=== PATIENT | female | born 1945 | race Caucasian/White ===

== ENCOUNTER → 2017-06-03 | Outpatient (CLI) | payer MEDICARE ==
--- NOTE | 2017-06-04 11:49 | RSPPFT ---
DATE OF PROCEDURE: 06/03/17 COMMENTS: Spirometry with FVC of 2.1 predicted 2.7, FEV1 of 0 6 predicted 2.0, FEV1/FVC ratio 30% predicted 81%. Post-bronchodilator FVC increases to 3.0, FEV1 to 0.8. Severe air trapping is present with RV at 3.9 predicted 2.2. Airways resistance is severely increased at 3.2 predicted 1.3. DLCO is 43% of predicted. IMPRESSION: On the basis of the above, patient has a very severe obstructive lung defect with significant response to acutely inhaled bronchodilator.
== END ==
LOC: PHRSP 07:24
PROVIDERS: ATTEND Internal Medicine Pulmonary Disease
DX: J44.9 Chronic obstructive pulmonary disease, unspecified (principal)
CPT/HCPCS: 36600; 82805; 94060; 94618; 94726; 94729

== ENCOUNTER 2018-02-28 11:48 | Observation (INO) ==
[2018-02-28] MEDS ORDERED: MethylPREDNISolone Sod Succinate Inj 125 MG/2 ML Vial IV.PUSH ONE (13:13)
--- NOTE | 2018-02-28 13:22 | ED ---
HPI General Chief Complaint: Shortness of Breath/Dyspnea Stated Complaint: SOB/COPD x 1 week Time Seen by Provider: 02/28/18 12:53 Source: patient Mode of arrival: ambulatory Limitations: no limitations History of Present Illness Pleasant 72-year-old female with history of COPD. Recently on a 9-day cruise. Arrived home this morning and proceeded to the emergency room for evaluation of shortness of breath. 30 pack years of tobacco use. Quit approximately 20 years ago. Reports a wheeze. She does not use oxygen at home. She is followed by pulmonology. Complaint: Reports shortness of breath and cough Onset (ago): day(s) (-8) Context: Reports recent travel Severity: moderate Consistency/Duration: constant Relieving factors: nothing Exacerbating factors: lying flat and talking Known history of: Reports COPD Associated symptoms: Reports denies other symptoms Treatment prior to arrival: Reports none Related Data Home oxygen amount: none Home Medications Medication Instructions Recorded Confirmed albuterol sulfate [ProAir HFA] 1 puff INHALATION Q4-6H PRN 02/28/18 02/28/18 lisinopril mg PO DAILY 02/28/18 tiotropium bromide [Spiriva with 1 cap INHALATION DAILY 02/28/18 02/28/18 HandiHaler] Allergies Allergy/AdvReac Type Severity Reaction Status Date / Time No Known Allergies Allergy Verified 02/28/18 12:05 Review of Systems ROS: all other systems reviewed are negative [facility] Medical History Medical History Age related osteoporosis (Acute) COPD (chronic obstructive pulmonary disease) (Acute) Hypertension (Acute) Social History Social History Second Hand Smoke Exposure: No Smoking Status: Former smoker Tobacco Type: Cigarettes How Often Do You Have a Drink Containing Alcohol: Monthly or less Recent Travel in [facility] within the Last 8 Weeks: No Recent Out of Country Travel within the Last 8 Weeks: Yes Immunization History Tetanus Immunization: >5 Years Exam Narrative Exam Narrative: CARDIOVASCULAR: Regular rate and rhythm without murmurs, gallops , or rubs. RESPIRATORY: Breath sounds decreased left lower lobe with end expiratory wheeze. No accessory muscle use. GASTROINTESTINAL: Abdomen soft, normal bowel sounds, non-tender, nondistended. MUSCULOSKELETAL: No cyanosis, or edema. BACK: Nontender scoliosis noted. No CVA tenderness. Course Initial Documented Vital Signs Temperature 97.9 F 02/28/18 11:58 Pulse Rate 99 H 02/28/18 11:58 Respiratory Rate 18 02/28/18 11:58 Blood Pressure 179/88 H 02/28/18 11:58 Pulse Oximetry 93 L 02/28/18 11:58 Last Documented Vital Signs Temperature 97.9 F 02/28/18 11:58 Pulse Rate 98 H 02/28/18 14:05 Respiratory Rate 22 02/28/18 14:05 Blood Pressure 162/82 H 02/28/18 14:05 Pulse Oximetry 97 02/28/18 14:05 Medical Decision Making MDM Narrative Medical decision making narrative: Labs reviewed and discussed. O2 sat on room air evaluated and proximal 85%. Slightly tachycardic. I think patient would benefit from oxygen and observation. Spoke with Dr. Fam who is in agreement will admit. Medical Screen Exam Complete: Yes Emergency Medical Condition: Yes Differential Diagnosis Differential Diagnosis: COPD exacerbation, viral versus bacterial pneumonia, CHF Medical Records Medical records reviewed: Yes I reviewed the patient's medical records. Lab Data Lab results reviewed: Yes I reviewed the patient's lab results. Result diagrams: 02/28/18 13:25 02/28/18 13:25 Lab Results 02/28/18 02/28/18 02/28/18 Range/Units 13:25 13:25 13:25 CBC w Diff Auto diff final WBC 8.6 (4.0-11.0) th/mm3 RBC 3.93 L (4.00-5.30) mil/mm3 Hgb 13.2 (11.6-15.3) gm/dL Hct 39.3 (35.0-46.0) % MCV 100.0 (80.0-100.0) fL MCH 33.6 (27.0-34.0) pg MCHC 33.6 (32.0-36.0) % RDW 11.7 (11.6-17.2) % Plt Count 295 (150-450) th/mm3 MPV 7.7 (7.0-11.0) fL Neut % (Auto) 69.2 (16.0-70.0) % Lymph % (Auto) 14.0 (9.0-44.0) % [place] % (Auto) 9.4 H (0.0-8.0) % Eos % (Auto) 6.8 H (0.0-4.0) % Baso % (Auto) 0.6 (0.0-2.0) % Neut # (Auto) 5.9 (1.8-7.7) th/mm3 Lymph # (Auto) 1.2 (1.0-4.8) th/mm3 [place] # (Auto) 0.8 (0.0-0.9) th/mm3 Eos # (Auto) 0.6 H (0.0-0.4) th/mm3 Baso # (Auto) 0.1 (0.0-0.2) th/mm3 WBC Differential . Differential Comment . D-Dimer Quant (PE/DVT) Less than 0.19 (0.00-0.50) mg/L FEU Sodium 132 L (136-145) meq/L Potassium 4.2 (3.5-5.1) meq/L Chloride 95 L (98-107) meq/L Carbon Dioxide 28.5 (21.0-32.0) meq/L Anion Gap 9 (5-15) meq/L BUN 11 (7-18) mg/dL Creatinine 0.56 (0.50-1.00) mg/dL Estimated GFR Greater than 89 (>89) mL/min Random Glucose 93 (74-106) mg/dL Calcium 8.6 (8.5-10.1) mg/dL Total Bilirubin 0.5 (0.2-1.0) mg/dL AST 18 (15-37) U/L ALT 25 (10-53) U/L Alkaline Phosphatase 64 (45-117) U/L Total Creatine Kinase 66 (26-192) U/L Troponin I Less than 0.02 L (0.02-0.05) ng/mL Total Protein 7.3 (6.4-8.2) g/dL Albumin 3.9 (3.4-5.0) g/dL 02/28/18 Range/Units 13:25 CBC w Diff WBC (4.0-11.0) th/mm3 RBC (4.00-5.30) mil/mm3 Hgb (11.6-15.3) gm/dL Hct (35.0-46.0) % MCV (80.0-100.0) fL MCH (27.0-34.0) pg MCHC (32.0-36.0) % RDW (11.6-17.2) % Plt Count (150-450) th/mm3 MPV (7.0-11.0) fL Neut % (Auto) (16.0-70.0) % Lymph % (Auto) (9.0-44.0) % [place] % (Auto) (0.0-8.0) % Eos % (Auto) (0.0-4.0) % Baso % (Auto) (0.0-2.0) % Neut # (Auto) (1.8-7.7) th/mm3 Lymph # (Auto) (1.0-4.8) th/mm3 [place] # (Auto) (0.0-0.9) th/mm3 Eos # (Auto) (0.0-0.4) th/mm3 Baso # (Auto) (0.0-0.2) th/mm3 WBC Differential Differential Comment D-Dimer Quant (PE/DVT) (0.00-0.50) mg/L FEU Sodium (136-145) meq/L Potassium (3.5-5.1) meq/L Chloride (98-107) meq/L Carbon Dioxide (21.0-32.0) meq/L Anion Gap (5-15) meq/L BUN (7-18) mg/dL Creatinine (0.50-1.00) mg/dL Estimated GFR (>89) mL/min Random Glucose (74-106) mg/dL Calcium (8.5-10.1) mg/dL Total Bilirubin (0.2-1.0) mg/dL AST (15-37) U/L ALT (10-53) U/L Alkaline Phosphatase (45-117) U/L Total Creatine Kinase Cancelled (26-192) U/L Troponin I (0.02-0.05) ng/mL Total Protein (6.4-8.2) g/dL Albumin (3.4-5.0) g/dL Imaging Data Radiologist's impression: Chest X-Ray 02/28/18 13:13 CONCLUSION: 1. Hyperinflation of the lungs consistent with possible COPD. 2. Tiny granuloma within the right lung base. 3. Scoliosis of the thoracolumbar spine. Discharge Plan Discharge Disposition Patient Disposition: 30 Still Patient Discharge Condition Condition: Fair Discharge Details Diagnosis: Acute exacerbation of chronic obstructive airways disease Physicians Team ED Provider: Dom Wiggins Primary Care Provider: UNKNOWN, Rxs /Orders / Referrals /Forms Prescriptions: No Action albuterol sulfate [ProAir HFA] 90 mcg/actuation Hfa Aerosol Inhaler 1 puff INHALATION Q4-6H PRN (Reason: SHORT) RF: 0 lisinopril 2.5 mg Tablet PO DAILY RF: 0 tiotropium bromide [Spiriva with HandiHaler] 18 mcg Capsule, W/Inhalation Device 1 cap INHALATION DAILY RF: 0 Discharge Interventions Interventions: Vital Signs Last Done: 02/28/18 14:05 Status ED Status: With Doctor
--- NOTE | 2018-02-28 13:34 | XR ---
EXAM DATE: 02/28/2018 1:13 PM EDT AGE/SEX: 72 years / Female INDICATIONS: Short of breath. CLINICAL DATA: This is the patient's initial encounter. Patient reports that signs and symptoms have been present for 2 days and indicates a pain score of 2/10. MEDICAL/SURGICAL HISTORY: Chronic obstructive pulmonary disease. None. COMPARISON: . FINDINGS: Lungs are hyperinflated consistent with possible COPD. Tiny calcified granuloma is noted within the r ight lung base. There is no focal infiltrate or pulmonary vascular congestion. The heart is normal. S coliosis of the thoracolumbar spine is noted. CONCLUSION: 1. Hyperinflation of the lungs consistent with possible COPD. 2. Tiny granuloma within the right lung base. 3. Scoliosis of the thoracolumbar spine. Electronically signed by: Shin Santos MD 02/28/2018 1:33 PM EDT
[2018-02-28 13:38] LABS: Baso # (Auto) 0.1 th/mm3 (0.0-0.2); Baso % (Auto) 0.6 % (0.0-2.0); Eos # (Auto) 0.6 th/mm3 (0.0-0.4); Eos % (Auto) 6.8 % (0.0-4.0); Hematocrit 39.3 % (35.0-46.0); Hemoglobin 13.2 gm/dL (11.6-15.3); Lymph # (Auto) 1.2 th/mm3 (1.0-4.8); Mean Corpuscular HGB Conc 33.6 % (32.0-36.0); Mean Corpuscular Hemoglobin 33.6 pg (27.0-34.0); Mean Platelet Volume 7.7 fL (7.0-11.0); Mono # (Auto) 0.8 th/mm3 (0.0-0.9); Mono % (Auto) 9.4 % (0.0-8.0); Neut # (Auto) 5.9 th/mm3 (1.8-7.7); Neut % (Auto) 69.2 % (16.0-70.0); Platelet Count 295 th/mm3 (150-450); Red Blood Count 3.93 mil/mm3 (4.00-5.30); Red Cell Distribution Width 11.7 % (11.6-17.2); White Blood Count 8.6 th/mm3 (4.0-11.0)
[2018-02-28 13:40] LABS: Chloride 95 meq/L (98-107); Potassium 4.2 meq/L (3.5-5.1); Sodium 132 meq/L (136-145)
[2018-02-28 13:43] LABS: Albumin 3.9 g/dL (3.4-5.0); Anion Gap 9 meq/L (5-15); Blood Urea Nitrogen 11 mg/dL (7-18); Calcium 8.6 mg/dL (8.5-10.1); Carbon Dioxide 28.5 meq/L (21.0-32.0); Glucose,Random 93 mg/dL (74-106)
[2018-02-28 13:46] LABS: Alanine Aminotransferase 25 U/L (10-53); Aspartate Aminotransferase 18 U/L (15-37)
[2018-02-28 13:47] LABS: Glomerular Filtration Rate Greater Than 89 mL/min (>89)
[2018-02-28 13:48] LABS: Total Protein 7.3 g/dL (6.4-8.2)
[2018-02-28 13:49] LABS: Alkaline Phosphatase 64 U/L (45-117)
[2018-02-28 14:20] LABS: Creatine Kinase 66 U/L (26-192)
[2018-02-28] MEDS ORDERED: Azithromycin Inj 500 MG in Sodium Chlor 0.9% Inj 250 ML IV.SIG ONE (15:01)
[2018-02-28] MEDS ORDERED: Acetaminophen 325 MG Tablet PO PRN (15:15)
[2018-02-28] MEDS ORDERED: guaiFENesin/Codeine Syrup 200 MG/20 MG 10 ML UDC PO PRN (15:16)
--- NOTE | 2018-02-28 15:24 | P.HPIM ---
History of Present Illness Primary Care Physician: UNKNOWN Chief Complaint: shortness of breath History of Present Illness: patient is a 72 y/o female with history of COPD and hypertension who presented to ER with sob. she says that she started to have sob about a week ago but it gradually got worse that now she hardly can walk more then fifty feet without sob. she's complaining of productive cough of yellowish/greenish sputum but she denies any fever or chills. she says that she used her inhaler so many times without any significant improvement. she was noted to have a pulse-ox of 85% in ER when she was taken off the oxygen. at the time of my evaluation she reported some improvement.she denies any chest pain. Review of Systems All other systems reviewed negative except as stated in HPI [facility] - History History Provided By: Patient - Medical History Medical History: Medical History (Last Reviewed 02/28/18 @ 15:21 by Liborio Fam MD) Age related osteoporosis COPD (chronic obstructive pulmonary disease) Hypertension - Family History Family History: Family History (Last Updated 02/28/18 @ 15:21 by Liborio Fam MD) Other Family history of cancer - Tobacco History Second Hand Smoke Exposure: No Tobacco Use In Past 30 Days: No Smoking Status: Former smoker Tobacco Type: Cigarettes - Alcohol History How Often Do You Have a Drink Containing Alcohol: Monthly or less - Travel History Recent Travel in the [place] Within the Last 8 Weeks: No Recent Travel Out of the Country Within the Last 8 Weeks: Yes - Immunization History Tetanus Immunization: >5 Years Medications and Allergies Active Medications: Active Medications Azithromycin 500 mg/ Sodium (Chloride) 250 mls @ 250 mls/hr IV.SIG ONCE ONE Stop: 02/28/18 16:00 Allergies Allergy/AdvReac Type Severity Reaction Status Date / Time No Known Allergies Allergy Verified 02/28/18 12:05 Home Medications Medication Instructions Recorded Confirmed Type albuterol sulfate [ProAir HFA] 1 puff INHALATION Q4-6H PRN 02/28/18 02/28/18 History lisinopril mg PO DAILY 02/28/18 History tiotropium bromide [Spiriva with 1 cap INHALATION DAILY 02/28/18 02/28/18 History HandiHaler] Exam Vital signs: Vital Signs 02/28/18 11:58 02/28/18 12:11 02/28/18 13:13 Temperature 97.9 F Pulse Rate 99 H 88 97 H Respiratory Rate 18 18 Blood Pressure 179/88 H Pulse Oximetry 93 L 94 L 97 02/28/18 13:31 02/28/18 14:05 Temperature Pulse Rate 94 H 98 H Respiratory Rate 20 22 Blood Pressure 162/82 H Pulse Oximetry 97 Intake & Output 02/27/18 02/28/18 02/28/18 18:59 06:59 18:59 Weight 45 kg - Constitutional no acute distress - Routine HEENT Exam Eye: Present: PERRL - Routine Neck Exam Present: supple - Routine Respiratory Exam Present: CTA bilaterally, wheezes - Routine Cardiovascular Exam Present: RRR - Routine Abdominal Exam Present: soft - Routine Extremities Exam Comments: no pedal edema. - Routine Neurological Exam Present: alert, oriented X3 Results - Labs CBC & Chem 7: 02/28/18 13:25 02/28/18 13:25 Labs: Short CBC 02/28/18 Range/Units 13:25 WBC 8.6 (4.0-11.0) th/mm3 Hgb 13.2 (11.6-15.3) gm/dL Hct 39.3 (35.0-46.0) % Plt Count 295 (150-450) th/mm3 BMP 02/28/18 13:25 Sodium 132 L Potassium 4.2 Chloride 95 L Carbon Dioxide 28.5 BUN 11 Creatinine 0.56 Calcium 8.6 Cardiac Enzymes 02/28/18 02/28/18 Range/Units 13:25 13:25 Total Creatine Kinase 66 Cancelled (26-192) U/L Troponin I Less than 0.02 L (0.02-0.05) ng/mL Liver Function 02/28/18 Range/Units 13:25 Total Bilirubin 0.5 (0.2-1.0) mg/dL AST 18 (15-37) U/L ALT 25 (10-53) U/L Alkaline Phosphatase 64 (45-117) U/L Albumin 3.9 (3.4-5.0) g/dL - Imaging Impressions Chest X-Ray 02/28/18 13:13 CONCLUSION: 1. Hyperinflation of the lungs consistent with possible COPD. 2. Tiny granuloma within the right lung base. 3. Scoliosis of the thoracolumbar spine. Caprini VTE Risk Assessment Caprini VTE Risk Assessment: Moderate/High Risk (score >= 2) Caprini Risk Assessment Model: Point Value = 1 Point Value = 2 Point Value = 3 Point Value = 5 Age 41-60 Minor surgery BMI > 25 kg/m2 Swollen legs Varicose veins or History of unexplained or recurrent spontaneous Oral contraceptives or hormone replacement Sepsis (< 1 month) Serious lung disease, including pneumonia (< 1 month) Abnormal pulmonary function Acute myocardial infarction Congestive heart failure (< 1 month) History of inflammatory bowel disease Medical patient at bed rest Age 61-74 Arthroscopic surgery Major open surgery (> 45 min) Laparoscopic surgery (> 45 min) Malignancy Confined to bed (> 72 hours) Immobilizing plaster cast Central venous access Age >= 75 History of VTE Family history of VTE Factor V Leiden Prothrombin [id number] Lupus anticoagulant Anticardiolipin antibodies Elevated serum homocysteine Heparin-induced thrombocytopenia Other congenital or acquired thrombophilia Stroke (< 1 month) Elective arthroplasty Hip, pelvis, or leg fracture Acute spinal cord injury (< 1 month) Prophylaxis Regimen: Total Risk Factor Score Risk Level Prophylaxis Regimen 0-1 Low Early ambulation 2 Moderate Order ONE of the following: *Sequential Compression Device (SCD) *Heparin 5000 units SQ BID 3-4 Higher Order ONE of the following medications: *Heparin 5000 units SQ TID *Enoxaparin/Lovenox 40 mg SQ daily (WT < 150 kg, CrCl > 30 mL/min) *Enoxaparin/Lovenox 30 mg SQ daily (WT < 150 kg, CrCl > 10-29 mL/min) *Enoxaparin/Lovenox 30 mg SQ BID (WT < 150 kg, CrCl > 30 mL/min) AND/OR *Sequential Compression Device (SCD) 5 or more Highest Order ONE of the following medications: *Heparin 5000 units SQ TID (Preferred with Epidurals) *Enoxaparin/Lovenox 40 mg SQ daily (WT < 150 kg, CrCl > 30 mL/min) *Enoxaparin/Lovenox 30 mg SQ daily (WT < 150 kg, CrCl > 10-29 mL/min) *Enoxaparin/Lovenox 30 mg SQ BID (WT < 150 kg, CrCl > 30 mL/min) AND *Sequential Compression Device (SCD) Assessment and Plan - Plan A/P - COPD exacerbation keep on oxygen to keep O2 sat > 90%- start on scheduled and prn neb treatment - continue with IV steroid and antibiotic. -hypertension; resume home meds. -consult PT -DVT prophylaxis with subq Lovenox. Discussed Condition With: ER physician, the patient and her . Discharge Planning: home- within the next 48 hrs if improves.
[2018-02-28] MEDS: Levofloxacin 500 mg Premix Inj 500 MG/100 ML PIGGYBACK IV.SIG SCH (16:36)
[2018-02-28] MEDS: guaiFENesin/Dextromethorphan 200 MG/20 MG 10 ML UDC PO PRN (21:41)
[2018-02-28] MEDS: MethylPREDNISolone Sod Succinate Inj 40 MG/ML Vial IV.PUSH SCH (21:41)
[2018-03-01] MEDS: MethylPREDNISolone Sod Succinate Inj 40 MG/ML Vial IV.PUSH SCH ×2 (05:59→17:33)
[2018-03-01] MEDS: Lisinopril 5 MG Tablet PO SCH (09:39)
[2018-03-01] MEDS: guaiFENesin/Dextromethorphan 200 MG/20 MG 10 ML UDC PO PRN (09:39)
[2018-03-01] MEDS: Enoxaparin Inj 40 MG/0.4 ML Syringe SQ SCH (09:40)
[2018-03-01] MEDS: Tiotropium Bromide 18 MCG/ACT Inhaler INH SCH (09:41)
--- NOTE | 2018-03-01 09:57 | P.PNIM ---
Subjective Interval history: f/u; COPD exacerbation looks and feels better today. sob improving. no fever. no new complaints. Physical Exam Vital signs: Vital Signs 02/28/18 11:58 02/28/18 12:11 02/28/18 13:13 Temperature 97.9 F Pulse Rate 99 H 88 97 H Respiratory Rate 18 18 Blood Pressure 179/88 H Pulse Oximetry 93 L 94 L 97 02/28/18 13:31 02/28/18 14:05 02/28/18 15:20 Temperature Pulse Rate 94 H 98 H 102 H Respiratory Rate 20 22 22 Blood Pressure 162/82 H 146/68 H Pulse Oximetry 97 96 02/28/18 16:00 02/28/18 16:25 02/28/18 20:00 Temperature 97.1 F L 96.1 F L Pulse Rate 98 H 100 H 100 H Respiratory Rate 20 16 20 Blood Pressure 141/66 H 116/58 L Pulse Oximetry 97 97 95 02/28/18 20:15 02/28/18 23:00 03/01/18 00:00 Temperature 96.1 F L Pulse Rate 105 H 102 H 101 H Respiratory Rate 18 16 18 Blood Pressure 118/54 L Pulse Oximetry 94 L 96 03/01/18 07:35 Temperature Pulse Rate 95 H Respiratory Rate 20 Blood Pressure Pulse Oximetry 93 L Intake & Output 02/28/18 03/01/18 03/01/18 18:59 06:59 18:59 Intake Total 470 / 470 480 / 480 Balance 470 / 470 480 / 480 Weight 45 kg 45 kg Intake: IV 350 / 350 Azithromycin Inj 500 MG In NS 250 / 250 Inj 250 ML @ 250 mls/hr IV.SIG ONCE ONE Rx#:[id number] Levaquin 500 mg Premix Inj 500 100 / 100 mg In 100 ml @ 100 mls/hr IV. SIG Q24H DWIGHT Rx#:[id number] Oral 120 / 120 480 / 480 Other: # Voids 1 3 - Constitutional no acute distress - Routine Respiratory Exam Present: CTA bilaterally - Routine Cardiovascular Exam Present: RRR - Routine Abdominal Exam Present: soft - Routine Extremities Exam Comments: no pedal edema. - Routine Neurological Exam Present: alert, oriented X3 Results - Labs CBC & Chem 7: 02/28/18 13:25 02/28/18 13:25 Laboratory Results - last 24 hr 02/28/18 02/28/1802/28/18 13:25 13:25 13:25 CBC w Diff Auto diff final WBC 8.6 RBC 3.93 L Hgb 13.2 Hct 39.3 MCV 100.0 MCH 33.6 MCHC 33.6 RDW 11.7 Plt Count 295 MPV 7.7 Neut % (Auto) 69.2 Lymph % (Auto) 14.0 [place] % (Auto) 9.4 H Eos % (Auto) 6.8 H Baso % (Auto) 0.6 Neut # (Auto) 5.9 Lymph # (Auto) 1.2 [place] # (Auto) 0.8 Eos # (Auto) 0.6 H Baso # (Auto) 0.1 WBC Differential . Differential Comment . D-Dimer Quant (PE/DVT) Less than 0.19 Sodium 132 L Potassium 4.2 Chloride 95 L Carbon Dioxide 28.5 Anion Gap 9 BUN 11 Creatinine 0.56 Estimated GFR Greater than 89 Random Glucose 93 Lactic Acid Calcium 8.6 Total Bilirubin 0.5 AST 18 ALT 25 Alkaline Phosphatase 64 Total Creatine Kinase 66 Troponin I Less than 0.02 L Total Protein 7.3 Albumin 3.9 02/28/18 02/28/18 13:25 15:15 CBC w Diff WBC RBC Hgb Hct MCV MCH MCHC RDW Plt Count MPV Neut % (Auto) Lymph % (Auto) [place] % (Auto) Eos % (Auto) Baso % (Auto) Neut # (Auto) Lymph # (Auto) [place] # (Auto) Eos # (Auto) Baso # (Auto) WBC Differential Differential Comment D-Dimer Quant (PE/DVT) Sodium Potassium Chloride Carbon Dioxide Anion Gap BUN Creatinine Estimated GFR Random Glucose Lactic Acid 1.0 Calcium Total Bilirubin AST ALT Alkaline Phosphatase Total Creatine Kinase Cancelled Troponin I Total Protein Albumin - Imaging Impressions Chest X-Ray 02/28/18 13:13 CONCLUSION: 1. Hyperinflation of the lungs consistent with possible COPD. 2. Tiny granuloma within the right lung base. 3. Scoliosis of the thoracolumbar spine. Assessment and Plan - Plan A/P - COPD exacerbation- improving. keep on oxygen to keep O2 sat > 90%- continue with prn neb treatment- continue with IV steroid and antibiotic. -hypertension; resume home meds. -consulted PT -DVT prophylaxis with subq Lovenox. Discharge Planning: home tomorrow if stable. needs walk test before discharge.
[2018-03-01] MEDS: Levofloxacin 500 mg Premix Inj 500 MG/100 ML PIGGYBACK IV.SIG SCH (17:32)
[2018-03-02] MEDS: MethylPREDNISolone Sod Succinate Inj 40 MG/ML Vial IV.PUSH SCH (06:27)
--- NOTE | 2018-03-02 07:25 | P.PNIM ---
Subjective Interval history: f/u; COPD exacerbation in no acute distress. on one liter of oxygen via [place]. says that she's improving and wants to go home. Physical Exam Vital signs: Vital Signs 03/01/18 07:35 03/01/18 08:00 03/01/18 11:06 Temperature 96.9 F L Pulse Rate 95 H 92 H Respiratory Rate 20 20 Blood Pressure 139/62 Pulse Oximetry 93 L 94 L 98 03/01/18 12:00 03/01/18 13:37 03/01/18 13:38 Temperature 96.7 F L Pulse Rate 107 H 107 H Respiratory Rate 20 22 Blood Pressure 159/90 H Pulse Oximetry 95 97 03/01/18 15:54 03/01/18 19:25 03/01/18 20:00 Temperature 96.7 F L 97.2 F L Pulse Rate 114 H 95 H Respiratory Rate 20 20 Blood Pressure 154/63 H 152/68 H Pulse Oximetry 94 L 95 94 L 03/02/18 00:00 03/02/18 03:05 Temperature 96.6 F L Pulse Rate 94 H 98 H Respiratory Rate 20 18 Blood Pressure 150/70 H Pulse Oximetry 97 Intake & Output 03/01/18 03/02/18 03/02/18 18:59 06:59 18:59 Intake Total 880 / 880 480 / 480 Balance 880 / 880 480 / 480 Weight 45.3 kg Intake: IV 100 / 100 Levaquin 500 mg Premix Inj 500 100 / 100 mg In 100 ml @ 100 mls/hr IV. SIG Q24H DWIGHT Rx#:[id number] Oral 780 / 780 480 / 480 Other: # Voids 5 4 - Constitutional no acute distress - Routine Respiratory Exam Present: CTA bilaterally - Routine Cardiovascular Exam Present: RRR - Routine Abdominal Exam Present: soft - Routine Extremities Exam Comments: no pedal edema. - Routine Neurological Exam Present: alert, oriented X3 Results - Labs CBC & Chem 7: 02/28/18 13:25 02/28/18 13:25 Microbiology 02/28/18 15:15 Blood - Peripheral Aerobic Blood Culture - Preliminary No growth in 1 day 02/28/18 15:15 Blood - Peripheral Anaerobic Blood Culture - Preliminary No growth in 1 day - Procedures none. Assessment and Plan - Plan A/P - COPD exacerbation- improving. keep on oxygen to keep O2 sat > 90%- continue with prn neb treatment- will switch to oral steroids and antibiotic. walk test today. -hypertension; resumed home meds. -consulted PT -DVT prophylaxis with subq Lovenox. Discharge Planning: home today after walk test. f/u; pcp and pulmonary. see med list. d/w the RN.
--- NOTE | 2018-03-02 07:28 | P.DS ---
Date of admission: 02/28/18 15:13 Primary care physician: UNKNOWN Brief History from admission: patient is a 72 y/o female with history of COPD and hypertension who presented to ER with sob. she says that she started to have sob about a week ago but it gradually got worse that now she hardly can walk more then fifty feet without sob. she's complaining of productive cough of yellowish/greenish sputum but she denies any fever or chills. she says that she used her inhaler so many times without any significant improvement. she was noted to have a pulse-ox of 85% in ER when she was taken off the oxygen. at the time of my evaluation she reported some improvement.she denies any chest pain. DS: Medications - Discharge Medications Prescriptions: ipratropium-albuterol 3 ml INHALATION Q6H PRN 30 Days ml PRN Reason: sob levofloxacin [Levaquin] 500 mg PO DAILY 5 Days #5 tab prednisone 5 mg PO DIRECTED 10 Days #10 tab DS: Summary Hospital Course: patient was admitted with COPD exacerbation. she was started on IV steroids, antibiotic and neb treatment. her clinical condition improved. she will be discharged home with follow-up with her pcp and pulmonary. - Time Spent with Patient Total time spent providing and/or coordinating discharge services: Less than 30 minutes - Quality: VTE Deep Vein Thrombosis/Pulmonary Embolism Present on Admission: No Exam Vital signs: Vital Signs 03/01/18 07:35 03/01/18 08:00 03/01/18 11:06 Temperature 96.9 F L Pulse Rate 95 H 92 H Respiratory Rate 20 20 Blood Pressure 139/62 Pulse Oximetry 93 L 94 L 98 03/01/18 12:00 03/01/18 13:37 03/01/18 13:38 Temperature 96.7 F L Pulse Rate 107 H 107 H Respiratory Rate 20 22 Blood Pressure 159/90 H Pulse Oximetry 95 97 03/01/18 15:54 03/01/18 19:25 03/01/18 20:00 Temperature 96.7 F L 97.2 F L Pulse Rate 114 H 95 H Respiratory Rate 20 20 Blood Pressure 154/63 H 152/68 H Pulse Oximetry 94 L 95 94 L 03/02/18 00:00 03/02/18 03:05 Temperature 96.6 F L Pulse Rate 94 H 98 H Respiratory Rate 20 18 Blood Pressure 150/70 H Pulse Oximetry 97 Intake & Output 03/01/18 03/02/18 03/02/18 18:59 06:59 18:59 Intake Total 880 / 880 480 / 480 Balance 880 / 880 480 / 480 Weight 45.3 kg Intake: IV 100 / 100 Levaquin 500 mg Premix Inj 500 100 / 100 mg In 100 ml @ 100 mls/hr IV. SIG Q24H DWIGHT Rx#:[id number] Oral 780 / 780 480 / 480 Other: # Voids 5 4 - Constitutional no acute distress - Routine Respiratory Exam Present: CTA bilaterally - Routine Cardiovascular Exam Present: RRR - Routine Abdominal Exam Present: soft - Routine Extremities Exam Comments: no pedal edema. - Routine Neurological Exam Present: alert, oriented X3 Results Procedures completed during hospitalization: none. Labs on day of discharge: Preliminary micro results at discharge 02/28/18 15:15 Aerobic Blood Culture - Preliminary Blood - Peripheral No growth in 1 day Anaerobic Blood Culture - Preliminary No growth in 1 day - Impressions ITS Impressions Chest X-Ray 02/28/18 13:13 CONCLUSION: 1. Hyperinflation of the lungs consistent with possible COPD. 2. Tiny granuloma within the right lung base. 3. Scoliosis of the thoracolumbar spine. Discharge Plan - Discharge Disposition Patient Disposition: Discharge Home - Discharge Condition Condition: Fair - Discharge Order Discharge Orders: Discharge Order (Routine); Ordered 03/02/18 Ordered By: Liborio Fam - Physicians Team Primary Care Provider: UNKNOWN, Attending Provider: Liborio Fam
[2018-03-02] MEDS: Lisinopril 5 MG Tablet PO SCH (08:06)
[2018-03-02] MEDS: Tiotropium Bromide 18 MCG/ACT Inhaler INH SCH (08:07)
[2018-03-02] MEDS: Enoxaparin Inj 40 MG/0.4 ML Syringe SQ SCH (08:07)
[2018-03-02 08:31] VITALS: PULSE 96; RESP 20; O2SAT 93
[2018-03-02 09:22] VITALS: BP 148/65; TEMP 97.2
== END 2018-03-02 10:27 | disposition home or self-care (01) ==
LOC: PHED 11:48 → PHEDA 11:48 → PH3 15:44
PROVIDERS: ADMIT Internal Medicine; ATTEND Internal Medicine